=== PATIENT | female | born 2000 | race Two or more races ===

== ENCOUNTER 2019-09-10 14:12 | Emergency (ER) | payer OTHER ==
[2019-09-10 14:24] VITALS: BP 135/83; PULSE 88; TEMP 98.6; BMI 23.8
--- NOTE | 2019-09-10 14:27 | PDOC ---
Rapid Medical Evaluation Time Seen by Provider: 09/10/19 14:18 Medical Evaluation: Allergies Allergy/AdvReac Type Severity Reaction Status Date / Time No Known Allergies Allergy Verified 11/01/13 21:03 Vital Signs Temp Pulse Resp BP Pulse Ox 98.6 F 88 18 135/83 100 09/10/19 14:21 09/10/19 14:21 09/10/19 14:21 09/10/19 14:21 09/10/19 14:21 09/10/19 14:24 Pt c/o: chest pressure pain to midsternal region x 1 minute while sitting at work, resolved and currently asymptomatic. No other complaints, no risk factors Pt on brief exam: no reproducible CP , vss, lcta Pt ordered for: ekg Pt to proceed to the ED Discharge Disposition - Diagnosis Chest pressure - Discharge Dispostion Condition at time of disposition: Stable - Referrals - Patient Instructions - Post Discharge Activity
--- NOTE | 2019-09-10 15:25 | PDOC ---
History of Present Illness - General Chief Complaint: Pain, Acute Stated Complaint: CHEST PAIN Time Seen by Provider: 09/10/19 14:18 History Source: Patient Exam Limitations: Clinical Condition - History of Present Illness Initial Comments: 09/10/19 15:21 Patient with no significant past medical history present with complaint of sudden onset of irregular heart beating chest discomfort which lasted for a minute while at work today and resolved. Report has not have any symptoms since then. Patient reports symptoms have been over an hour ago. Patient also reported nasal congestion, intermittent headaches and intermittent lightheadedness which has been going on for many months was seen in the hospital 2 days ago for symptoms being treated for sinusitis with advised to do nasal rinse. Denies any other symptoms. Denies dizziness now, shortness of breath, palpitation, chest pain now, numbness or tingling sensation. Denies any other symptoms Is this a multiple visit Asthma Patient?: No Timing/Duration: 1-3 hours, resolved prior to arrival Past History - Past Medical History Allergies/Adverse Reactions: Allergies Allergy/AdvReac Type Severity Reaction Status Date / Time No Known Allergies Allergy Verified 11/01/13 21:03 Home Medications: Ambulatory Orders Diphenhydramine HCl [Benadryl Capsules -] 25 mg PO Q4H PRN #18 capsule 11/01/13 EPINEPHrine (EPI-PEN 0.3MG) [Epipen 0.3MG] 0.3 mg IM PRN PRN #2 syr 11/01/13 predniSONE [Deltasone -] 20 mg PO BID #6 tablet 11/01/13 Ipratropium Linn 2 spray NS BID PRN 5 Days #1 spray 09/10/19 Montelukast Na [Singulair -] 10 mg PO DAILY #7 tablet 09/10/19 COPD: No - Immunization History Immunization Up to Date: Yes - Psycho Social/Smoking Cessation Hx Smoking History: Never smoked Have you smoked in the past 12 months: No Information on smoking cessation initiated: No Hx Alcohol Use: No Drug/Substance Use Hx: No Review of Systems - Review of Systems Able to Perform ROS?: Yes Is the patient limited Syriac proficient: No Constitutional: No: Chills, Fever, Malaise HEENTM: Yes: Symptoms Reported, See HPI, Nose Congestion. No: Eye Pain, Blurred Vision, Tearing, Recent change in vision, Double Vision, Cataracts, Ear Pain, Ocular Prothesis, Ear Discharge, Nose Pain, Tinnitus, Nose Bleeding, Hearing Loss, Throat Pain, Throat Swelling, Mouth Pain, Dental Problems, Difficulty Swallowing, Mouth Swelling, Other Respiratory: No: Symptoms reported, See HPI, Cough, Orthopnea, Shortness of Breath, SOB with Exertion, SOB at Rest, Stridor, Wheezing, Productive cough, Hemoptysis, Other Cardiac (ROS): Yes: Symptoms Reported, See HPI, Irregular Heart Rate (resolved) . No: Chest Pain, Edema, Lightheadedness, Palpitations, Syncope, Chest Tightness, Other ABD/GI: No: Symptoms Reported, Nausea, Vomiting Musculoskeletal: No: Symptoms Reported Integumentary: No: Symptoms Reported, Rash Neurological: Yes: Symptoms reported, See HPI, Headache (intermittent JAMES). No: Numbness, Paresthesia, Tingling, Weakness, Unsteady Gait, Dizziness All Other Systems: Reviewed and Negative *Physical Exam - Vital Signs Last Vital Signs Temp Pulse Resp BP Pulse Ox 98.6 F 88 18 135/83 100 09/10/19 14:21 09/10/19 14:21 09/10/19 14:21 09/10/19 14:21 09/10/19 14:21 - Physical Exam 09/10/19 15:24 GENERAL: Well developed, well nourished. Awake and alert. No acute distress. HEENT: Bilateral nasal congestion. Normocephalic, atraumatic. PERRLA, EOMI. No conjunctival pallor. Sclera are non-icteric. Moist mucous membranes. Oropharynx is clear. NECK: Supple. Full ROM. No JVD. Carotid pulses 2+ and symmetric, without bruits. No thyromegaly. No lymphadenopathy. CARDIOVASCULAR: Regular rate and rhythm. No murmurs, rubs, or gallops. Distal pulses are 2+ and symmetric. PULMONARY: No evidence of respiratory distress. Lungs clear to auscultation bilaterally. No wheezing, rales or rhonchi. ABDOMINAL: Soft. Non-tender. Non-distended. No rebound or guarding. No organomegaly. Normoactive bowel sounds. MUSCULOSKELETAL Normal range of motion at all joints. No bony deformities or tenderness. No CVA tenderness. SKIN: Warm and dry. Normal capillary refill. No rashes. No cyanosis. NEUROLOGICAL: Alert, awake, appropriate. Cranial nerves 2-12 intact. No deficits to light touch in face, upper extremities and lower extremities. No motor deficits in the in face, upper extremities and lower extremities. Normal speech. Gait is normal without ataxia. PSYCHIATRIC: Cooperative. Good eye contact. Appropriate mood and affect. General Appearance: Yes: Nourished, Appropriately Dressed. No: Apparent Distress ED Treatment Course - RADIOLOGY Radiology Studies Ordered: Category Date Time Status CHEST PA & LAT [RAD] Stat Radiology 09/10/19 15:19 Ordered Medical Decision Making - Medical Decision Making 09/10/19 15:22 Patient with no significant past medical history present with complaint of sudden onset of irregular heart beating chest discomfort which lasted for a minute while at work today and resolved. Report has not have any symptoms since then. Patient reports symptoms have been over an hour ago. Patient also reported nasal congestion, intermittent headaches and intermittent lightheadedness which has been going on for many months was seen in the hospital 2 days ago for symptoms being treated for sinusitis with advised to do nasal rinse. Denies any other symptoms. Denies dizziness now, shortness of breath, palpitation, chest pain now, numbness or tingling sensation. Denies any other symptoms Physical exam unremarkable with normal cardio and normal lung exam. Patient in no acute distress. EKG done from triage shows normal sinus rhythm. Bilateral nasal congestion on exam which is consistent with previous diagnosis sinusitis. Chest x-ray ordered to rule out acute chest abnormality. Patient symptoms likely due to atypical heartbeat and now stable now. Patient be discharged home with cardiology follow-up if negative chest x-ray. Patient was to be referred to neurology given to complaint of intermittent headaches. 09/10/19 15:49 Chest x-ray shows no acute abnormality or infiltrate compared to chest x-ray from 2005. Patient asymptomatic now and stable for discharge with strict follow -up instruction. Rx for nasal spray and antihistamine given for sinus congestion and referral to neurology given for headaches. Patient stable for discharge Discharge - Discharge Information Problems reviewed: Yes Clinical Impression/Diagnosis: Chest pressure, Sinus headache Sinusitis nasal Qualifiers: Sinusitis location: unspecified location Chronicity: acute Recurrence: non- recurrent Qualified Code(s): J01.90 - Acute sinusitis, unspecified Condition: Improved Disposition: HOME - Admission No - Additional Discharge Information Prescriptions: Ipratropium Linn 2 spray NS BID PRN 5 Days #1 spray PRN Reason: nasal congestion Montelukast Na [Singulair -] 10 mg PO DAILY #7 tablet - Follow up/Referral Referrals: Ab Jordan MD [Staff Physician] - - Patient Discharge Instructions Patient Printed Discharge Instructions: DI for Atypical Chest Pain, DI for Sinus Headache Additional Instructions: Your EKG is normal. Your chest x-ray is normal as well. Your symptoms likely caused by irregular heartbeat. Come back to emergency room if chest pain comes back. Take prescribed medication as needed for sinus congestion. Increase fluid intake. Follow-up referred neurologist for headache and tingling sensation in hands - Post Discharge Activity
--- NOTE | 2019-09-11 12:05 | EKG ---
Test Reason : Blood Pressure : / mmHG Vent. Rate : 100 BPM Atrial Rate : 100 BPM P-R Int : 146 ms QRS Dur : 086 ms QT Int : 334 ms P-R-T Axes : 057 025 041 degrees QTc Int : 430 ms NORMAL SINUS RHYTHM POSSIBLE LEFT ATRIAL ENLARGEMENT BORDERLINE ECG Confirmed by MD TORIN, DENICE ([id number]) on 09/11/2019 12:04:52 PM Referred By: Confirmed By:DENICE HARKINS MD
== END 2019-09-10 15:56 | disposition home or self-care (01) ==
LOC: JERFT 14:12
DX: J01.90 Acute sinusitis, unspecified (principal); R07.89 Other chest pain
CPT/HCPCS: 71046-TC-FY; 93005; 93010; 99281-25